=== PATIENT | male | born 1990 | race Two or more races ===

== ENCOUNTER 2021-03-19 06:31 | Emergency (ER) | payer SELFPAY ==
[~2021-03-19] VITALS: Ht 175.3 cm; Wt 79.8 kg
[2021-03-19] MEDS ORDERED: LORAZEPAM 1 MG TABLET ONE (06:45)
--- NOTE | 2021-03-19 06:45 | NUR ---
PT BIBRA 860 FROM HOME C/O HX OF PTSD, REQUESTING FOR MEDICATIONS. PT IS ON ROOM AIR SHOWING NO S/S OF RESP DISTRESS/SOB. - SI/HI. VSS. ALL SAFETY MEASURES IMPLEMENTED. WILL CONTINUE TO MONITOR AND ASSESS FOR ANY CHANGES.
[2021-03-19] MEDS: LORAZEPAM 1 MG TABLET PO ONE (06:46)
--- NOTE | 2021-03-19 06:46 | NUR ---
URINE SPECIMEN COLLECTED AND SENT TO LAB
--- NOTE | 2021-03-19 06:50 | NUR ---
covid swab done and sent to lab
[2021-03-19 07:42] LABS: BASOPHILS # (AUTO) 0.1 K/uL (0.0-0.2); BASOPHILS % (AUTO) 0.7 % (0.0-2.0); EOSINOPHILS % (AUTO) 0.9 % (0.0-6.0); HEMATOCRIT 45 % (39-51); HEMOGLOBIN 15.5 g/dL (13.5-17.5); LYMPHOCYTES # (AUTO) 2.2 K/uL (0.8-4.8); LYMPHOCYTES % (AUTO) 28.8 % (20.0-44.0); MEAN CORPUSCULAR HGB CONC 34 g/dl (31.0-36.0); MEAN CORPUSCULAR VOLUME 96 fL (80-96); MONOCYTES # (AUTO) 0.6 K/uL (0.1-1.30); NEUTROPHILS # (AUTO) 4.8 K/uL (1.8-8.9); NEUTROPHILS % (AUTO) 61.6 % (43.0-81.0); PLATELET COUNT (AUTO) 366 K/uL (150-450); RED BLOOD CELL COUNT(AUTO) 4.71 MIL/uL (4.5-6.0); WHITE BLOOD COUNT (AUTO) 7.7 K/uL (4.3-11.0)
[2021-03-19 08:05] LABS: BILIRUBIN,URINE NEGATIVE (NEGATIVE); LEUKOCYTE ESTERASE ,URINE NEGATIVE (NEGATIVE); NITRITE, URINE NEGATIVE (NEGATIVE); PROTEIN,URINE NEGATIVE (NEGATIVE); UGLUCOSE NEGATIVE (NEGATIVE); UROBILINOGEN,URINE 0.2 EU/dL (0.2)
--- NOTE | 2021-03-19 08:09 | NUR ---
THE PATIENT IS RECEIVED IN BED SLEEPING. RESPONSIVE TO VERBAL STIMULI. RESPIRATION REGULAR AND UNLABORED. WILL CONTINUE TO MONITOR THE PATIENT
[2021-03-19 08:13] LABS: CALCIUM, SERUM 7.8 mg/dL (8.5-10.1); CARBON DIOXIDE 28 mmol/L (21-32); CHLORIDE 104 mmol/L (98-107); CREATININE 0.8 mg/dL (0.6-1.3); GLUCOSE 119 mg/dL (74-106); POTASSIUM 3.8 mmol/L (3.5-5.1); SODIUM SERUM 143 mmol/L (136-145); UREA NITROGEN, BLOOD 8 mg/dL (7-18)
[2021-03-19 08:14] LABS: COLOR,URINE STRAW (YELLOW)
[2021-03-19 08:19] LABS: ALANINE AMINOTRANSFERASE 41 U/L (12-78); ALBUMIN 4.2 g/dL (3.4-5.0); ALCOHOL, BLOOD 269 mg/dL (0-0); ALKALINE PHOSPHATASE 102 U/L (46-116); ASPARTATE AMINOTRANSFERASE 35 U/L (15-37); BILIRUBIN,DIRECT 0.1 mg/dL (0.0-0.2); BILIRUBIN,TOTAL 0.4 mg/dL (0.2-1.0)
[2021-03-19 09:10] LABS: BACTERIA,URINE None seen /HPF (None Seen); SQUAMOUS EPITHELIAL CELL,UR Few /HPF (None Seen); WBC,URINE NONE SEEN /HPF (0-3)
[2021-03-19 09:25] LABS: TOTAL PROTEIN, SERUM 8.5 g/dL (6.4-8.2)
[2021-03-19 09:44] LABS: ACETAMINOPHEN < 10 ug/ml (10-30)
--- NOTE | 2021-03-19 11:22 | NUR ---
NOHEMI [phone]. (AUNT).
--- NOTE | 2021-03-19 12:35 | NUR ---
SS consult: SS Consult requested for PTSD and symptoms of Depression. The pt. is a 30-year-old male in the ED BIBRA after he called EMS due to "not feeling okay", per patient. SW met with pt. bedside. The pt. is A&OX 4 and appears well-groomed and mal-odorous. The pt.'s eyes are blood shot and pt. stated he has been drinking alcohol "to not feel sad". The pt. states he has seen a psychiatrist at [facility] [[address] [place] [address] ] Dr. Ballesteros and could not provide a phone number. Pt. also stated he was referred to a therapist but did not go through with therapy as he : was "drunk" upon scheduled time to meet with therapist. Pt stated psychiatrist has given him mediation before and could not recall medication name. Pt. is requesting voluntary psychiatric hospitalization at a [place] [facility]. Pt. denies current SI/HI and denies current hallucinations. However, pt. states he was feeling depressed at home and was experiencing SI last month and was in a psych hospital for Tx. SW asked what triggers these feelings of sadness. Pt. stated he is having marital problems and recently moved in to live with grandmother. SW validated his feeling and provided pt. addiction and mental health resources. SW encouraged pt. to try therapy and continue appropriate use of psychiatric medications. Pt. is agreeable. Plan: SW left voicemail for [facility] Transfer Team TEL:[phone] [[address] [place] [address]]. Per [place] [facility] the Transfer Team will call SW back and initiate Transfer. Noted. ADDICTION RESOURCES For Drugs and Alcohol [facility] Substance Abuse Helpline(SAS)-[facility] Outpatient treatment, residential treatment, recovery support for youth and adults [facility] www.actionfamilycounsNeodata Group.InnoCC Francia Carr Teen programs for drug/alcohol education and support [facility]. Program for adults, sliding scale provides support and education [facility] www.Carsquare.org [place]; Outpatient/residential treatment programs; transition to sober living [facility] www.cri-help.org [place]; Outpatient and residential treatment programs; transition to sober living [facility] [place] [facility] Hakan Valdez; Outpatient education and supportive programs for teens and adults [facility] www.oasiswomensrecovery.org [place]; Residential treatment and work program for females only [facility] www.TellWisexlemont furnace.Urbantech [place]: Outpatient/residential treatment program for teens and young adults [facility] www.[facility].org [place] Detox, inpatient, outpatient for adults and youth [facility], [facility]. [place]; Outpatient programs and referrals to community residential programs. Alcoholics Anonymous -SFV information and meeting and schedules www.aa-intergroup.org Ik-Xbwc-Fdtwnfo https://al-anon.org/ [place] support groups for family of alcoholics. Marijuana Anonymous www.madistrict6.org -SFV listing of meetings Narcotics Anonymous www.na.org SOBER LIVING RESOURCES [facility] www.soberhousing.net A non-profit agency that provides resources to recovery and sober living homes throughout [facility] Men's Sober Living Homes: A Work in Progress[facility]ga [facility] Quantified [facility] Recovery [facility], [place] [facility] Women's Sober Living Homes: [facility] x [phone] [place], [place] Lallie [facility] Coed Sober Living Homes: [facility] Counseling--Outpatient [facility] [address] [place] [address] (Specializes in in-depth psychotherapy for emotional distress: anxiety, depression, interpersonal conflicts, life transitions, childhood abuse) [facility] [address] [place] [address] (Assist with solving problem marital difficulties, separation & divorce, aging parents, & grief, chronic & terminal illness) [facility] [address] [place] [address] (Deal with loss & grief, anxiety, marital difficulties) Homebound/Mental Health Services [address], [address] [place] [address] (Provide in-home mental services to people who are incapable of leaving their homes) [facility] Elderly Senior Service/Resource Center [address] [place] [address] [facility] [address] [place] [address] Mental Health Services Joanie Rios [address] [place] [address] Services: Outpatient therapy for children, teens, young adults, adults, older adults, and families; Psychiatric services, medication support Psychiatric Outpatient Services [facility] Partial Hospitalization and Intensive Outpatient Program (Managed Care and [place] Only)[address] [facility]. [facility] [phone] [facility] Partial Hospitalization and Outpatient [id number] [facility]. [address] [place], [place] [phone] [facility] Partial Hospitalization and Outpatient [id number] [facility]. [place], [place] [phone] [facility] Mental Health [address] [place], [place] [phone] [facility] Partial Hospitalization and Outpatient [id number] [place], [phone] Crisis and Hotline Telephone Numbers 24-Hour service unless stated [place] Crisis Hotlines: [facility] Mental Health/Crisis Line........314.944.8060 Suicide Prevention Center (24 Hours).......672.611.5629 Suicide Prevention Crisis Center.......479.291.7691 (24 Hours) Assaults Against Women Hotline.........105.460.3616 (24 Hours -- [facility]) Women and Children Crisis Assisted...........667.460.3451 (24 Hours) Child Abuse Hotline............305.398.8858 [facility] (24 Hours)..........[phone] Alcoholics Anonymous (24 Hours)..........121.428.5027 Cocaine Anonymous (24 Hours)............[phone] Narcotics Anonymous (24 Hours)..........[phone] Nadege Diaz [facility] [address] [place] [address]
[2021-03-19] MEDS ORDERED: LORA-258 PO (12:40)
--- NOTE | 2021-03-19 13:15 | NUR ---
The patient is alert and oriented x4. Denies SI/HI. In room air and denies SOB. Respiration regular and unlabored. Denies pain. Patient discharged in stable condition. Written and verbal after care instructions given. Patient verbalizes understanding of instruction.
[2021-03-19 13:19] VITALS: BP 135/85
== END 2021-03-19 13:20 | disposition home or self-care (01) ==
LOC: ER 06:33
DX: F32.A Depression, unspecified (principal); F10.129 Alcohol abuse with intoxication, unspecified; Y90.8 Blood alcohol level of 240 mg/100 ml or more; F43.10 Post-traumatic stress disorder, unspecified; Z20.822 Contact with and (suspected) exposure to COVID-19
CPT/HCPCS: 36415; 80048; 80076; 80143; 80307; 80320 ×2; 81001; 85025; 87426; 99283; C9803; G0480